=== PATIENT | female | born 2005 | race African-American/Black ===

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

== ENCOUNTER 2024-12-16 07:38 | Emergency (ER) | payer BC, SELFPAY ==
[2024-12-16 07:47] VITALS: BP 146/74; PULSE 85; RESP 18; TEMP 36.6; O2SAT 100
--- NOTE | 2024-12-16 08:16 | ED_ITS ---
HPI - General Adult General Chief complaint: Skin/Abscess/Foreign Body Stated complaint: Rash on Hands Time Seen by Provider: 12/16/24 07:52 History of Present Illness HPI narrative: This is 19-year-old female with a history of eczema presenting with a rash on her hands. Patient says for last 2 and half years she has been severely dry hands that occasionally form small pustules. She has been popping pustules and trimming her dry skin with a nail clipper. She has tried many different treatments past ranging from lotions, steroids, baking soda baths among others. She has not been able to see a national dedicated truck driver. Related Data Home Medications ?Medication ?Instructions ?Recorded ?Confirmed ?Last Taken ?Type mupirocin 2 % topical ointment 1 applic topical BID 09/13/19 09/13/19 Unknown History sulfamethoxazole 800 1 tablet PO Q12H 09/13/19 09/13/19 Unknown History mg-trimethoprim 160 mg tablet Allergies Allergy/AdvReac Type Severity Reaction Status Date / Time No Known Allergies Allergy Verified 12/16/24 07:45 [facility] Family History Family History Other Boil Social History Social History Gender identity (if verbalized by the patient): Female Exam Narrative: APPEARANCE: No apparent distress. Head: atraumatic. EYES: EOMI, NOSE: Atraumatic NECK: Trachea midline RESPIRATORY: No increased rate of breathing CARDIOVASCULAR: RRR, ABDOMINAL: Non-distended MUSCULOSKELETAl: No obvious deformities NEURO: Alert. Moving 4/4 extremities SKIN:: Patient has dry cracked skin both hands without signs of overlying infection excellent fracture left side of her neck PSYCHIATRIC: Normal affect Course Vital Signs Vital signs: Vital Signs Temperature 97.8 F 12/16/24 07:47 Pulse Rate 85 12/16/24 07:47 Respiratory Rate 18 12/16/24 07:47 Blood Pressure 146/74 H 12/16/24 07:47 Pulse Oximetry 100 12/16/24 07:47 Temperature 97.8 F 12/16/24 07:47 Pulse Rate 85 12/16/24 07:47 Respiratory Rate 18 12/16/24 07:47 Blood Pressure 146/74 H 12/16/24 07:47 Pulse Oximetry 100 12/16/24 07:47 Medical Decision Making MDM Narrative Medical decision making narrative: -Course: 19-year-old female presenting with a dry rash hands. Presentation consistent with dyshidrotic eczema. Patient is requesting a steroid shot which has helped her in the past. We also discussed different methods for hydration including emollients, lotions and steroid creams. Mostly they need a referral to Dermatology. Patient was given to referral to several national dedicated truck driver as well as instructions to follow-up with primary care physician who may also be able to provide them with a referral to derm. Vital Signs Vital Signs: Vital Signs Temperature 97.8 F 12/16/24 07:47 Pulse Rate 85 12/16/24 07:47 Respiratory Rate 18 12/16/24 07:47 Blood Pressure 146/74 H 12/16/24 07:47 Pulse Oximetry 100 12/16/24 07:47 Temperature 97.8 F 12/16/24 07:47 Pulse Rate 85 12/16/24 07:47 Respiratory Rate 18 12/16/24 07:47 Blood Pressure 146/74 H 12/16/24 07:47 Pulse Oximetry 100 12/16/24 07:47 Discharge Plan Discharge Clinical Impression: Dyshidrotic eczema Patient Disposition: Home Condition: Stable Instructions: Antibiotic Form, Dyshidrotic Eczema (ED) Additional Instructions: [facility] [phone] Dr. Chandler Kessler [phone] Please reach out to the above dermatologists to see if you can schedule an appointment. Please follow-up with your primary care physician as they may be able to refer you to a national dedicated truck driver that they are familiar with. If you develop severe pain fevers or signs of infection please return to the ED for re- evaluation. Continue to lotion and moisturize hands. Patient Language: Turkmen Prescriptions: No Action cephalexin 500 mg capsule 500 mg PO Q12H 7 Days Qty: 14 0RF sulfamethoxazole-trimethoprim 800-160 mg Tablet 1 tablet PO Q12H mupirocin 2 % Ointment 1 applic TOPICAL BID Follow-up/Referrals: Checo,Chandler Guerrero MD [Non-Staff] - 1 Week (Dishydrotic eczema ) PHYSICIAN,HAULAGE ENGINE OPERATOR [Primary Care Provider] - [facility]iana,Moriah Rao MD [Non-Staff] - 1 Week (Dishydrotic eczema )
[2024-12-16] MEDS: dexAMETHasone SOD PHOS INJ 10 MG/ML 1 ML VIAL IM (08:35)
[2024-12-16 08:40] VITALS: BP 116/70; PULSE 77; RESP 18; TEMP 36.6; O2SAT 100
== END 2024-12-16 08:42 | disposition home or self-care (01) ==
PROVIDERS: Emergency Provider Emergency Medicine
DX: L30.1 Dyshidrosis [pompholyx] (principal)
CPT/HCPCS: 96372; 99283; J1100

== ENCOUNTER 2025-05-26 09:48 | Outpatient (CLI) | payer BC, SELFPAY ==
[2025-05-26 10:49] LABS: Hematocrit 35.2 % (37.0-47.0); Hemoglobin 11.7 g/dL (12.0-15.0); Immature Granulocyte Percent A 0.0 % (0-0.5); Immature Reticulocyte Fraction 9.0 % (3.0-15.9); Lymphocytes Absolute Auto 1.25 K/mm3 (0.9-3.2); Mean Corpuscular HGB Conc 33.2 g/dl (32-36); Mean Corpuscular Hemoglobin 29.2 pg (26-34); Mean Corpuscular Volume 87.8 fl (80-100); Nucleated Red Blood Cells Absolute Auto 0.000 K/mm3 (0.0-0.012); Nucleated Red Blood Cells Perc 0.0 % (0.0-0.2); Platelet Count Result 270 k/mm3 (150-375); Red Blood Count 4.01 M/mm3 (4.2-5.4); Reticulocyte Hemoglobin Conten 32.2 pg (28.2-36.6); Reticulocytes Absolute 0.06 10^6/uL (0.02-0.10); White Blood Count 3.3 K/mm3 (4.5-10.0)
[2025-05-26 11:10] LABS: Alanine Aminotransferase 20 U/L (6-35); Albumin Level 4.5 g/dL (3.5-5.1); Alkaline Phosphatase 55 U/L (38-126); Anion Gap 4 mmol/L (4-12); Aspartate Amino Transferase 24 U/L (14-36); Bilirubin,Total 0.6 mg/dL (0.2-1.3); Blood Urea Nitrogen 9 mg/dL (7-17); Calcium 9.3 mg/dL (8.4-10.2); Carbon Dioxide 27 mmol/L (22-30); Chloride 104 mmol/L (98-107); Cholesterol 192 mg/dL (0-200); Estimated Glomerular Filt Rate > 60; Glucose 88 mg/dL (65-110); HDL Direct 85 mg/dL; Potassium 3.7 mmol/L (3.4-5.0); Sodium 135 mmol/L (137-145); Total Protein 7.7 g/dL (6.3-8.2); Triglycerides 48 mg/dL (<150)
[2025-05-26 11:16] LABS: Iron 99 ug/dL (37-170)
[2025-05-26 11:46] LABS: Thyroid Stimulating Hormone 0.510 uIU/mL (0.465-4.680)
[2025-05-26 11:58] LABS: Ferritin 9.49 ng/mL (6.24-137)
[2025-05-26 12:05] LABS: Vitamin B12 610.0 pg/mL (239-931)
[2025-05-28 15:08] LABS: Folate, Hemolysate 348.0 ng/mL (Not Estab.)
[2025-05-29 08:09] LABS: ANA by IFA Rfx Titer/Pattern Negative (.)
[2025-05-29 14:08] LABS: Lead, Blood (Adult) <1.0 ug/dL (0.0-3.4)
[2025-05-30 12:08] LABS: I006-IgE Cockroach, German 0.11 kU/L (Class 0/I); T006-IgE Cedar, Mountain <0.10 kU/L (Class 0); T007-IgE Oak, White <0.10 kU/L (Class 0); T008-IgE Elm, American 0.12 kU/L (Class 0/I); T015-IgE Ash, White <0.10 kU/L (Class 0); T022-IgE Pecan, Hickory <0.10 kU/L (Class 0); W001-IgE Ragweed, Short <0.10 kU/L (Class 0); W011-IgE Thistle, Russian <0.10 kU/L (Class 0); W014-IgE Pigweed, Common <0.10 kU/L (Class 0); W016-IgE Rough Marshelder <0.10 kU/L (Class 0)
== END 2025-05-26 09:49 | disposition home or self-care (01) ==
LOC: ANHLAB 09:49
PROVIDERS: PCP Family Medicine
DX: Z13.0 Encounter for screening for diseases of the blood and blood-forming organs and certain disorders involving the immune mechanism (principal); Z13.1 Encounter for screening for diabetes mellitus; Z13.220 Encounter for screening for lipoid disorders; Z13.29 Encounter for screening for other suspected endocrine disorder; L65.9 Nonscarring hair loss, unspecified; R53.83 Other fatigue; L30.9 Dermatitis, unspecified
CPT/HCPCS: 36415; 80053; 80061; 82306; 82607; 82728; 82747; 82785; 83540; 83655; 84443; 85025; 85046; 86003; 86038